=== PATIENT | male | born 1965 | race Caucasian/White ===

== ENCOUNTER 2019-10-24 08:58 | Outpatient (CLI) | payer OTHER, SELFPAY ==
--- NOTE | 2019-10-24 10:45 | NEURO_ITS ---
Patient Number: [id number] Impression: # Complains of left elbow discomfort and hand numbness. # No Carpal Tunnel Syndrome or ulnar neuropathy. # Cross innervation ulnar to median below the elbow noted. # Normal needle/EMG exam. Nerve Conduction Studies Anti Sensory Summary Table Stim Site NR Peak (ms) P-T Amp (?V) Site1 Site2 Delta-P (ms) Dist (cm) Dimitry (m/s) Left Median Anti Sensory (2-3nd Digit) Wrist 3.0 45.5 Wrist 2-3nd Digit 3.0 14.0 47 Wrist 3.0 66.0 Wrist 2-3nd Digit 3.0 14.0 47 Left Radial Anti Sensory (Base 1st Digit) Wrist 1.8 22.3 Wrist Base 1st Digit 1.8 0.0 Left Ulnar Anti Sensory (5th Digit) Wrist 2.4 41.7 Wrist 5th Digit 2.4 14.0 58 Motor Summary Table Stim Site NR Onset (ms) O-P Amp (mV) Site1 Site2 Delta-0 (ms) Dist (cm) Dimitry (m/s) Left Median Motor (Abd Poll Brev) Wrist 3.4 0.8 Elbow Wrist 4.9 28.0 57 Elbow 8.3 1.8 ELB/ADM Wrist 0.2 0.0 Left Ulnar Motor (Abd Dig Minimi) Wrist 2.7 5.3 A Elbow Wrist 5.2 29.0 56 A Elbow 7.9 3.9 F Wave Studies NR F-Lat (ms) L-R F-Lat (ms) Left Median (Mrkrs) (Abd Poll Brev) 28.54 Left Ulnar (Mrkrs) (Abd Dig Min) 29.29 EMG Side Muscle Nerve Root Ins Act Fibs Amp Dur Recrt Comment Left 1stDorInt Ulnar C8-T1 Nml Nml Nml Nml Nml Left Ext Indicis Radial (Post Int) C7-8 Nml Nml Nml Nml Nml Left Ext Digitorum Radial (Post Int) C7-8 Nml Nml Nml Nml Nml Left BrachioRad Radial C5-6 Nml Nml Nml Nml Nml Left PronatorTeres Median C6-7 Nml Nml Nml Nml Nml Left Abd Poll Brev Median C8-T1 Nml Nml Nml Nml Nml Left ABD Dig Min Ulnar C8-T1 Nml Nml Nml Nml Nml MTDD
== END 2019-10-24 08:59 | disposition home or self-care (01) ==
PROVIDERS: PCP Internal Medicine; Visit Provider Nurse Practitioner
DX: M79.642 Pain in left hand (principal)
CPT/HCPCS: 95886; 95909

== ENCOUNTER 2019-12-17 02:27 | Outpatient (CLI) | payer OTHER, SELFPAY ==
[2019-12-17 17:02] LABS: SARS-CoV-2 RNA PCR Negative
== END 2019-12-17 02:28 | disposition home or self-care (01) ==
LOC: ANHCOVIDDT 02:27
PROVIDERS: PCP Internal Medicine; Visit Provider Plastic Surgery
DX: Z01.812 Encounter for preprocedural laboratory examination (principal); Z11.59 Encounter for screening for other viral diseases
CPT/HCPCS: 87635; C9803; U0003

== ENCOUNTER 2019-12-19 01:39 | Day surgery (SDC) | payer OTHER, SELFPAY ==
[2019-12-10 10:12] VITALS: BMI 35.9
[2019-12-19 08:37] VITALS: BP 141/77; PULSE 70; RESP 16; TEMP 36.4; O2SAT 98
[2019-12-19] MEDS: LACTATED RINGERS 1,000 ML 30 ML IV CONT (08:50)
--- NOTE | 2019-12-19 09:26 | WPDANESEPPF ---
Anes - Initial Pre Proc Eval Procedure: Operation Date: 12/19/19 10:30 Proposed Procedures p Left Ulnar Neuroplasty At The Elbow - Juan Diego Gonzalez MD Date/Time: 12/19/19 09:26 Surgeon: Juan Diego Gonzalez MD Pre Op Diagnosis: Left Cubital Tunnel Syndrome Patient Data Age: 54 Gender: M Height: 5 ft 10 in Weight: 117 kg Last Vital Signs Temp 36.4 C 12/19/19 08:37 Pulse 70 12/19/19 08:37 Resp 16 12/19/19 08:37 BP 141/77 H 12/19/19 08:37 Pulse Ox 98 12/19/19 08:37 Allergies Allergy/AdvReac Type Severity Reaction Status Date / Time No Known Allergies Allergy Unknown Verified 12/19/19 08:47 Home Medications Medication Instructions Recorded Confirmed Type fexofenadine-pseudoephedrine ER 1 tablet PO DAILY PRN 02/22/19 12/19/19 History 180 mg-240 mg tablet,ext.release 24 hr fluticasone propionate 50 2 spray NASAL DAILY PRN 08/06/19 12/19/19 History mcg/actuation nasal spray,suspension fluticasone 250 mcg-salmeterol 50 1 inhalation INHALATION BID #60 11/15/19 12/19/19 Rx mcg/dose blistr powdr for each inhalation Patient hx anesthesia problems: none Family hx anesthesia problems: none PMFSH Past Medical History Medical History Allergies Asthma Bilateral leg pain Common peroneal nerve dysfunction Elevated glucose Low testosterone Lower extremity pain Sleep apnea Surgical History Surgical History H/O hernia repair 2009 History of carpal tunnel release BL 2015 Family History Family History Sibling Lupus Son Diabetes mellitus Social History Social History Smoking packs per day: 1 Smoking cigarettes per day: 20.0 Years smoked: 5 Smoking pack-years: 5.00 Smoking status: Former smoker Tobacco type: cigarettes Smoking end date: 04/10/90 Additional smoking assessment comments: QUIT 1992 Alcohol intake: current Drinks per week: 1 Substance use: never Spiritual care concerns: No Anes - Eval Final PreProcedure Day of Procedure 12/19/19 09:26 Patient weight: obese Heart: regular rate and rhythm Lungs: clear to auscultation Airway: Mallampati scale class II Neurological: alert and oriented Last oral intake: >/= 8 hours ASA classification: III Emergent: no Anesthetic plan: proceed Anesthesia type and monitoring: general LMA and standard monitoring Informed Consent: The patient's anesthetic plan and its attendant risks and benefits were discussed with the patient/family/POA. Questions were solicited and answers provided to the satisfaction of the patient/family/POA.
--- NOTE | 2019-12-19 10:00 | SUR.PREOP ---
0957-PT AWARE SURGERY DELAYED UNDETERMINED TIME R/T PRIOR CASE.
--- NOTE | 2019-12-19 10:27 | WPDHPUPDATE1 ---
History and Physical Update Update Date/Time: 12/19/19 10:27 History and Physical has been reviewed, including an updated exam of the patient. There are NO changes in the patient's condition. Risks, benefits, and alternatives have been discussed and questions answered. Patient agrees to proceed with procedure.
[2019-12-19] MEDS: LIDO 1%/EPINEPHRINE 1:100,000 20 ML VIAL INFILTRATE (11:00)
--- NOTE | 2019-12-19 11:41 | PM.OP ---
Procedure Note - Brief Procedure Note - Brief Date of procedure: 12/19/19 Pre-op diagnosis: Left Cubital Tunnel Syndrome Post-op diagnosis: same Procedure performed: L Ulnar neuroplasty at the elbow. Anesthesia: MAC Surgeon: Juan Diego Gonzalez MD Estimated blood loss (mL): 5 Tourniquet time (min): 20 Drains: No Packing: No Pathology: none sent Complications: No immediate complications Condition: stable Disposition: same day
--- NOTE | 2019-12-19 11:44 | P.OP_ITS ---
Procedure Note - Detailed Date of procedure: 12/19/19 Pre-op diagnosis: Left Cubital Tunnel Syndrome Post-op diagnosis: same Procedure performed: Left ulnar neuroplasty at the elbow Description of procedure: The appropriate elbow was marked on the patient as he was in the holding area. He was taken to the operating room and placed supine on the operating table. A time-out was held and confirmed. He was given sedation anesthetic. The extremity was prepped and draped in usual fashion. The elbow was flexed and the arm externally rotated. The elbow was supported on folded towels. The incisional marking was made again and the site locally infiltrated with 1% lidocaine with epinephrine. The tourniquet was inflated to 250 mmHg. The incision was made with a 15. Blade. Dissection was carried through the thick subcutaneous tissue with scissor dissection. This gentleman has a great deal of muscle mass both in the flexor forearm and in the triceps. The nerve lay in the deep groove. It was dissected proximally, 1st releasing overlying fascial and dividing the intermuscular septum. From proximal to distal, the Banegas ligament was released with careful scissor dissection. It appeared that the nerve lay under compression in that region. The muscle fascia of the flexor carpi ulnaris was incised and the very robust muscle was divided directly over the nerve for 3 cm. At that point there was no further pressure on the nerve. The nerve did not sublux. Bleeding points were carefully sought and coagulated. The deep wound margins were approximated with intradermal 3-0 Monocryl suture at several sites. The skin was closed with a running intradermal 3-0 Monocryl suture and a bulky bandage was applied. The tourniquet was released. The patient was discharged from the operating room stable condition. He is dischar ge instructions in wound care and follow-up and has a prescription for hydrocodone 5/325 number a 14. Surgeon: Juan Diego Gonzalez MD
== END 2019-12-19 12:45 | disposition home or self-care (01) ==
PROVIDERS: PCP Internal Medicine; Visit Provider Plastic Surgery
PROC: (CPT 64718; principal; 2019-12-19 10:30)
DX: G56.22 Lesion of ulnar nerve, left upper limb (principal); J45.909 Unspecified asthma, uncomplicated; Z87.891 Personal history of nicotine dependence; E66.9 Obesity, unspecified; Z68.37 Body mass index [BMI] 37.0-37.9, adult
CPT/HCPCS: 64718; A9270; J2250; J2704; J3010; J7120

== ENCOUNTER 2019-12-29 11:40 | Emergency (ER) | payer OTHER, SELFPAY ==
[2019-12-29 11:46] VITALS: BP 169/78; PULSE 78; RESP 18; TEMP 36.4; O2SAT 98
--- NOTE | 2019-12-29 11:56 | ED.BACK ---
HPI - Back Pain/Injury General Chief Complaint: Back Pain/Injury Stated Complaint: back pain Time Seen by Provider: 12/29/19 11:46 History of Present Illness HPI Narrative: 54-year-old male presents emergency department for nonradiating low back pain that started yesterday around noon when he was moving around cat litter and the cat litter box. Patient states he was standing on the stairs, and turned a certain way, immediately feeling the pain. Patient denies any other injuries, traumas, or falls. No numbness or tingling noted. No bowel or bladder incontinence. Patient denies IV drug use. No chest pain or shortness of breath. No abdominal pain. Related Data Home Medications Medication Instructions Recorded Confirmed fexofenadine-pseudoephedrine ER 1 tablet PO DAILY PRN 02/22/19 12/19/19 180 mg-240 mg tablet,ext.release 24 hr hydrocodone-acetaminophen 12/29/19 Allergies Allergy/AdvReac Type Severity Reaction Status Date / Time No Known Allergies Allergy Unknown Verified 12/29/19 11:50 Review of Systems Review of Systems: Narrative: CONSTITUTIONAL: Denies fever, chills, or sweats. EYES: Denies visual changes, redness, or discharge. ENT: Denies rhinorrhea, congestion, sore throat, or otalgia. CARDIOVASCULAR: Denies chest pain, palpitations, or edema. RESPIRATORY: Denies cough or dyspnea. GASTROINTESTINAL: Denies abdominal pain, nausea, vomiting, or diarrhea. GENITOURINARY: Denies dysuria or hematuria. SKIN: Denies rash or itching. MUSCULOSKELETAL: Reports low back pain, denies joint pain. NEUROLOGIC: Denies headache, numbness, tingling, dizziness, or weakness. PSYCHIATRIC: Denies anxiety or depression. [facility] Past Medical History Medical History Allergies Asthma Bilateral leg pain Common peroneal nerve dysfunction Elevated glucose Low testosterone Lower extremity pain Sleep apnea Surgical History Surgical History H/O hernia repair 2009 History of carpal tunnel release 2015 Family History Family History Sibling Lupus Son Diabetes mellitus Social History Social History Smoking packs per day: 1 Smoking cigarettes per day: 20.0 Years smoked: 5 Smoking pack-years: 5.00 Smoking status: Former smoker Tobacco type: cigarettes Smoking end date: 04/10/90 Additional smoking assessment comments: QUIT 1992 Alcohol intake: current Drinks per week: 1 Substance use: never Gender identity (if verbalized by the patient): Male Spiritual care concerns: No Exam Narrative: Exam Narrative: GENERAL: Well-appearing, well-nourished, and in no acute distress. HEAD: Normocephalic, atraumatic. EYES: PERRLA and EOMI. ENT: Nares clear, no rhinorrhea or epistaxis. Mucous membranes moist. NECK: Supple. CHEST: Clear to auscultation. No respiratory distress. HEART: Regular rate and rhythm. No murmur heard. Normal peripheral pulses. ABDOMEN: Soft, nontender, nondistended, normal active bowel sounds. EXTREMITIES: Pain with straight leg raise at 30 degrees bilaterally. Low, mid back TTP SKIN: Warm, dry, no rash. NEURO: No focal deficits. Alert and oriented x3. PSYCH: Normal mood and affect. Course Reevaluation(s) Reevaluation #1: 1325 -evaluate patient, pain improved. Low suspicion for cauda equina, epidural abscess, or other spinal cord injury. Based on patient's history, pain likely musculoskeletal. Counseled patient to follow-up with his medical provider within 1 week. Return to emergency department if his symptoms persist, worsen, or other concerns. Can alternate Motrin and Tylenol as needed for pain. Vital Signs Vital signs: Vital Signs Temperature 36.4 C 12/29/19 11:46 Pulse Rate 78 12/29/19 11:46 Respiratory Rate 18 12/29/19 11:46 Blood Pressure
[2019-12-29] MEDS: KETOROLAC 30 MG/ML VIAL (*BKC) IM (12:18)
[2019-12-29] MEDS: diazePAM INJ (*CRX) 10 MG/2 ML SYRINGE 2 MG IM (12:19)
[2019-12-29 13:51] VITALS: BP 147/80; PULSE 72; RESP 18; O2SAT 100
== END 2019-12-29 13:52 | disposition home or self-care (01) ==
PROVIDERS: Emergency Provider Emergency Medicine; PCP Internal Medicine
DX: M54.5 Low back pain (principal); J45.909 Unspecified asthma, uncomplicated; G47.30 Sleep apnea, unspecified; Z87.891 Personal history of nicotine dependence
CPT/HCPCS: 96372; 99284; J1885; J3360

== ENCOUNTER 2022-06-07 10:47 | Outpatient (CLI) | payer OTHER, SELFPAY | END 2022-06-07 10:48 | disposition home or self-care (01) | LOC: ANHAUDIO 10:47 | PROVIDERS: PCP Internal Medicine; Visit Provider Clinical Nurse Specialist | DX: H91.90 Unspecified hearing loss, unspecified ear (principal) | CPT/HCPCS: 92557; 92567 ==

== ENCOUNTER 2023-10-30 14:43 | Outpatient (CLI) | payer OTHER, SELFPAY ==
--- NOTE | ~2023-10-30 | XR_ITS ---
EXAM: XR_[id number]_CR DATE: 10/30/2023 14:54 HISTORY: M54.12 - Radiculopathy, cervical region . COMPARISON: None available. FINDINGS: Craniocervical association and atlantoaxial joint are aligned. Mild degenerative change at the atlantodental interval. No prevertebral soft tissue swelling. Cervical straightening. 1 mm retro listhesis at C3-4. 2 mm retrolisthesis at C5-6. Vertebral body heights are maintained. Mild disc spac e narrowing at C3-4 and C5-6 with mild marginal osteophytosis. Mild uncovertebral joint hypertrophy o n the right at C5-6. Normal facets and posterior elements. IMPRESSION: Multilevel grade 1 listheses, likely on a degenerative basis. Mild multilevel degenerativ e disc disease. Reviewed, dictated and finalized at location [facility]. IMPRESSION: Multilevel grade 1 listheses, likely on a degenerative basis. Mild multilevel degenerative disc disease.
== END 2023-10-30 14:44 ==
LOC: MICIMG 14:45
PROVIDERS: PCP Internal Medicine; Visit Provider Clinical Nurse Specialist
DX: M43.12 Spondylolisthesis, cervical region (principal); M50.322 Other cervical disc degeneration at C5-C6 level
CPT/HCPCS: 72040

== ENCOUNTER 2023-12-13 11:23 | Outpatient (CLI) | payer OTHER, SELFPAY ==
--- NOTE | ~2023-12-13 | XR_ITS ---
Right Shoulder Technique: AP and scapular Y views were obtained. Clinical History: Pain Findings: No fracture or dislocation is seen. Osseous alignment is anatomic. The glenohumeral and acr omioclavicular joint spaces are preserved. Soft tissues are unremarkable. Impression: Unremarkable right shoulder radiographs. Reviewed, dictated and finalized at [facility]. Impression: Unremarkable right shoulder radiographs.
== END 2023-12-13 11:24 | disposition home or self-care (01) ==
PROVIDERS: PCP Clinical Nurse Specialist; Visit Provider Clinical Nurse Specialist
DX: M25.511 Pain in right shoulder (principal)
CPT/HCPCS: 73030

== ENCOUNTER 2024-01-08 07:18 | Outpatient (CLI) | payer OTHER, SELFPAY ==
--- NOTE | ~2024-01-08 | MR_ITS ---
MRI of the cervical spine Clinical History: Radiculopathy Technique: Axial T2-weighted and gradient images, and sagittal T1-weighted, T2-weighted, and STIR joseph ges were acquired. Findings: There is no fracture or subluxation of the cervical spine. Vertebral bodies maintain normal height and alignment. No suspicious bone marrow signal abnormality seen. At C2-C3, there is no disc bulge or herniation. No spinal canal stenosis, cord compression, or neural foraminal narrowing. At C3-C4, there is minimal disc osteophyte complex and minimal facet arthropathy. There is left neura l foraminal narrowing. Right neural foramen preserved. No central canal stenosis or cord compression. At C4-C5, there is no significant disc bulge or herniation. No spinal canal stenosis or cord compress ion. Probable minimal bilateral neural foraminal narrowing. At C5-C6, there is moderate to advanced degenerative disc narrowing with minimal disc osteophyte comp mejia. No spinal canal stenosis or cord compression. There is bilateral neural foraminal narrowing. At C6-C7, there is no disc bulge or herniation. No spinal canal stenosis, cord compression, or neural foraminal narrowing. No abnormal signal seen in the spinal cord. Paravertebral soft tissues are unremarkable. Impression: Tmbw-gu-ohowihvm degenerative spondylosis, as above, with multilevel neural foraminal narrowing. Reviewed, dictated and finalized at [facility]. Impression: Qlkh-[id number] degenerative spondylosis, as above, with multilevel neural for aminal narrowing.
--- NOTE | ~2024-01-08 | MR_ITS ---
EXAMINATION: MR shoulder RT wo con DATE: 01/08/2024 08:59 INDICATION: Right shoulder pain. TECHNIQUE: Magnetic resonance imaging (MRI) of the right shoulder was performed without intravenous c ontrast. Sequences included axial PD-weighted FS FSE, coronal oblique PD-weighted FS FSE and T2-weigh rand FS FSE, and sagittal oblique T2-weighted FS FSE and T1-weighted FSE. COMPARISON: Right shoulder radiographs 12/13/2023 FINDINGS: Coracoacromial arch: The acromion undersurface is curved in morphology (type II). There is severe acromioclavicular joint osteoarthritis including full-thickness cartilage loss and osteophytes. There is mild subacromial/sub deltoid bursitis. Rotator cuff: There is an interstitial tear of the conjoined portion of supraspinous and infraspinatus tendons gina uring 7 mm anterior to posterior by 5 mm proximal to distal by 40% tendon thickness. Teres minor tend on is normal. There is mild subscapularis tendinopathy. There is volume loss and moderate fatty atrop hy of teres minor muscle belly. Biceps tendon and glenoid labrum: Biceps tendon is in bicipital groove. There is mild intra-articular biceps tendinopathy. There is a t ear of glenoid labrum from 11:00 to 12:00 (SLAP tear). Fluid: There is a small glenohumeral joint effusion. Bones/cartilage: Glenoid cartilage is normal. Humeral head cartilage is normal. IMPRESSION: 1. Partial-thickness rotator cuff tear. 2. SLAP tear. 3. Severe acromioclavicular joint osteoarthritis. 4. Mild subacromial/subdeltoid bursitis. 5. Small glenohumeral joint effusion. 6. Volume loss and moderate fatty atrophy of teres minor muscle belly, which may be seen with quadril ateral space syndrome. Reviewed, dictated and finalized at location [facility]. IMPRESSION: 1. Partial-thickness rotator cuff tear. 2. SLAP tear. 3. Severe acromioclavicular joint osteoarthritis. 4. Mild subacromial/subdeltoid bursitis. 5. Small glenohumeral joint effusion. 6. Volume loss and moderate fatty atrophy of teres minor muscle belly, which ma y be seen with quadrilateral space syndrome.
== END 2024-01-08 07:19 | disposition home or self-care (01) ==
PROVIDERS: PCP Clinical Nurse Specialist; Visit Provider Clinical Nurse Specialist
DX: M54.12 Radiculopathy, cervical region (principal)
CPT/HCPCS: 72141; 73221

== ENCOUNTER 2025-02-03 01:11 | Day surgery (SDC) | payer OTHER, SELFPAY ==
--- OUTSIDE RECORDS SUMMARY | 2024-07-17 03:22 | XMS_ITS | Continuity of Care Document ---
Author Organization [facility] Address [address] [place] [address] Phone Care Team Providers Care Agate Setter Name Role Phone Say PT,MPT,ATC, Yunior Unavailable Unavai lable Procedures Procedure Date Therapeutic Activities Neuromuscular Re-Ed Therapeutic Exercise Therapeutic Activities Neuromuscular Re-Ed Therapeutic Exercise Therapeutic Activities Neuromuscular Re-Ed Therapeutic Exercise Therapeutic Activities Neuromuscular Re-Ed Therapeutic Exercise Therapeutic Activities Neuromuscular Re-Ed Therapeutic Exercise Therapeutic Activities Neuromuscular Re-Ed Therapeutic Exercise Therapeutic Activities Neuromuscular Re-Ed Therapeutic Exercise Therapeutic Activities Neuromuscular Re-Ed Therapeutic Exercise Manual Therapy Doc neg elder mal no plan PT Evaluation Moderate Complexity Therapeutic Activities Neuromuscular Re-Ed Advance Directives Directive Yes / No Effective Date File Name No Information Encounters Encounter Description Practice Location Reason(s) For Visit Diagnoses Date Provider Providers Copied on Encounter [facility], [address], [place], [place], [id number], [place] tel:[phone] [place] No Information 5 Deal Yunior. , [place], [place]. [facility], [address], [place], [place], [id number], [place] tel:[phone] [place] No Information 4 [place] Yanick. . Referring Provider: Jake Zeng, [address] [place] [address] [address], [place], [address]. tel:[phone] [facility] [address], [place], [place], [id number], [place] tel:[phone] [place] No Information 4 [place] Yanick. . Referring Provider: Jake Zeng, [address] [place] [address] [address], [place], [address]. tel:[phone] [facility] [address], [place], [place], [id number], [place] tel:[phone] [place] No Information 4 Deal Yunior. , [place], [place]. Referring Provider: Jake Zeng, [address] [place] [address] [address], [place], [address]. tel:[phone] [facility] [address], [place], [place], [id number], [place] tel:[phone] [place] No Information 4 [place] Yanick. . Referring Provider: Jake Zeng, [address] [place] [address] [address], [place], [address]. tel:[phone] [facility] [address], [place], [place], [id number], [place] tel:[phone] [place] No Information 4 [place] Yanick. . Referring Provider: Jake Zeng, [address] [place] [address] [address], [place], [address]. tel:[phone] [facility], [place], [place], [id number], tel:[phone] [place] No Information 4 Ohdignaoraria Yanick. . Referring Provider: Jake Zeng, [address] [place] [address] [address], [place], [address]. tel:[phone] [facility] [address] [facility] [address], [place], [place], [id number], tel:[phone] [place] No Information 4 Ohdignaoraria Beardener. . Referring Provider: Jake Zeng, [address] [place] [address] [address], [place], [address]. tel:[phone] [place] [address] [address], [place], [place], [id number], tel:[phone] [place] No Information 4 Walter Prieto. [address] [facility], [address], [place], [place], [facility], . tel:[phone] Referring Provider: Jake Zeng, [address] [place] [address] [address], [place], [address]. tel:[phone], [id number], tel:[phone] [place] No Information 4 [place], [place], . Referring Provider: Jake Zeng, [address] [place] [address] [address], [place], [address]. tel:[phone] Family History Family Member Type Diagnosis Age At Onset No Information Payers Payer name Insurance type Covered constitution party ID Authoriza tion(s) No Information Social History Type Description Quantity Date Captured Comments Sex Male Smoking Status No Information Chief Complaint And Reason For Visit No Information Reason For Referral Reason For Referral No Information History Of Present Illness Encounter Date Complaint History Of Prese nt Illness No Information Functional Status Date Functional Assessmen t No Information Instructions Date Instruction Additional Infor mation No Information Assessments Type Assessment Date No Information Patient Care Teams Name Effective Dates (start - stop) Status Members No Information
[2025-01-22 16:13] VITALS: BMI 32.3
--- OUTSIDE RECORDS SUMMARY | 2025-02-03 01:13 | XMS_ITS | Clinical Summary ---
Author Organization [facility] Address [address] [place] [address] Care Team Providers Care Demographic Analyst Name Role Phone Jake Zeng DO Primary Care Provider Allergies No known active allergies Medications Advair Diskus 250-50 mcg/dose diskus inhaler 04/16/2019 Acti ve Active Problems No known active problems Surgical History Surgery Date Site/Laterality Comments CARPAL TUNNEL RELEASE Medical History Medical History Date Comments Arthritis Sleep apnea Allergic rhinitis Family History Medical History Relation Name Comments No Known Problems Mother Diabetes Son Relation Name Status Comments Mother Son Social History Tobacco Use Types Packs/Day Years Used Date Smoking Tobacco: Former Cigarettes 1 5 0 04/10/1987 - 04/10/1992 Smokeless Tobacco: Never Alcohol Use Standard Drinks/Week Comments Yes 0 (1 standard drink = 0.6 oz pur e alcohol) Social Personal Safety Answer Date Recorded Getting School Help Needed Not on file 06/24 Sex and Gender Information Value Date Recorded Sex Assigned at Not on file 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
[2025-02-03 09:05] VITALS: BP 120/76; PULSE 70; RESP 16; TEMP 36.6; O2SAT 100; BMI 32.3
[2025-02-03] MEDS: LACTATED RINGERS 1,000 ML 150 ML IV CONT (09:20)
--- NOTE | 2025-02-03 09:33 | P.PNAN_ITS ---
Anes - Initial Pre Proc Eval Procedure: Operation Date: 02/03/25 10:30 Proposed Procedures p Screening Colonoscopy - Estuardo Sky MD Date/Time: 02/03/25 09:33 Surgeon: Estuardo Sky MD Pre Op Diagnosis: Screening Patient Data Age: 59 Gender: M Height: 1.78 m Weight: 102.1 kg Last Vital Signs Temp 36.6 C 02/03/25 09:05 Pulse 70 02/03/25 09:05 Resp 16 02/03/25 09:05 BP 120/76 02/03/25 09:05 Pulse Ox 100 02/03/25 09:05 O2 Del Method Room Air 02/03/25 09:05 Allergies Allergy/AdvReac Type Severity Reaction Status Date / Time No Known Allergies Allergy Unknown Verified 02/03/25 09:11 Home Medications ?Medication ?Instructions ?Recorded ?Confirmed ?Type ibuprofen 600 mg tablet 600 mg PO TID PRN pain, mode rate 12/29/19 01/22/25 Rx #30 tabs fluticasone 100 mcg-salmeterol 50 1 inh inhalation Q12 H #180 ea 04/26/24 02/03/25 Rx mcg/dose blistr powdr for inhalation (Advair Diskus) albuterol sulfate 90 mcg/actuation 1 puff inhalation Q 4H PRN 05/03/24 01/22/25 Rx aerosol inhaler shortness of breath or wheez ing #90 mcg CPAP #1 ea 07/31/24 01/22/25 Rx semaglutide (weight loss) 0.25 0.25 mg subcut .bi week ly 01/22/25 02/03/25 History mg/0.5 mL subcutaneous pen injector Patient hx anesthesia problems: none Family hx anesthesia problems: none Results Review: All pre-operative results and documents have been reviewed as part of the pre- operative evaluation. FORMERLY [facility], [facility] Past Medical History Medical History Common peroneal nerve dysfunction Lower extremity pain Bilateral leg pain Asthma Sleep apnea Elevated glucose Low testosterone Allergies Surgical History Surgical History History of elbow surgery History of carpal tunnel release 2015 H/O hernia repair 2009 Family History Family History Sibling Lupus Son Diabetes mellitus Social History Social History Social History: Caffeine-coffee Smoking packs per day: 1 Smoking cigarettes per day: 20.0 Years smoked: 4 Smoking pack-years: 4.00 Smoking status: Former smoker Tobacco type: cigarettes Smoking end date: 04/10/90 Additional smoking assessment comments: QUIT 1992 Alcohol intake: current Drinks per week: 1 Alcohol use details: occasionally Substance use: never Substance use type: does not use Do You Feel Safe in your Home?: Yes Lack of Transportation: No Lack of Food: Never True Current Housing: I Have Housing Concerned About Future Housing: No Difficulty Paying Gas/Electric Bills: No Difficulty Paying for Meds: No Currently Unemployed: No Education: Master's Degree or Higher Difficulty w/ Childcare or Family Care: No Living arrangements: with family Gender identity (if verbalized by the patient): Male Spiritual care concerns: No Anes - Eval Final PreProcedure Day of Procedure 02/03/25 09:33 Patient weight: obese Heart: regular rate and rhythm Lungs: clear to auscultation Airway: Mallampati scale class II Neurological: alert and oriented Last oral intake: >/= 8 hours ASA classification: III Emergent: no Anesthetic plan: proceed Anesthesia type and monitoring: general GIVS and standard monitoring Results Review: All pre-operative results and documents have been reviewed as part of the pre- operative evaluation. Informed Consent: The patient's anesthetic plan and its attendant risks and benefits were discussed with the patient/family/POA. Questions were solicited and answers provided to the satisfaction of the patient/family/POA.
--- NOTE | 2025-02-03 09:59 | P.HP_ITS ---
History of Present Illness History of Present Illness Consent: Risks, benefits, and alternatives have been discussed and questions answered. Patient agrees to proceed with procedure. Chief complaint: Screening Narrative: Andreas Machuca is a 59 year old male here for screening colonoscopy, last one 11 years ago Review of Systems Review of Systems: All systems reviewed & are unremarkable except as noted in HPI and below PMFSH Past Medical History Medical History Common peroneal nerve dysfunction Lower extremity pain Bilateral leg pain Asthma Sleep apnea Elevated glucose Low testosterone Allergies Surgical History Surgical History History of elbow surgery History of carpal tunnel release 2015 H/O hernia repair 2009 Family History Family History Sibling Lupus Son Diabetes mellitus Social History Social History Social History: Caffeine-coffee Smoking packs per day: 1 Smoking cigarettes per day: 20.0 Years smoked: 4 Smoking pack-years: 4.00 Smoking status: Former smoker Tobacco type: cigarettes Smoking end date: 04/10/90 Additional smoking assessment comments: QUIT 1992 Alcohol intake: current Drinks per week: 1 Alcohol use details: occasionally Substance use: never Substance use type: does not use Do You Feel Safe in your Home?: Yes Lack of Transportation: No Lack of Food: Never True Current Housing: I Have Housing Concerned About Future Housing: No Difficulty Paying Gas/Electric Bills: No Difficulty Paying for Meds: No Currently Unemployed: No Education: Master's Degree or Higher Difficulty w/ Childcare or Family Care: No Living arrangements: with family Gender identity (if verbalized by the patient): Male Spiritual care concerns: No Meds Home Medications and Allergies Home Medications ?Medication ?Instructions ?Recorded ?Confirmed ?Type ibuprofen 600 mg tablet 600 mg PO TID PRN pain, mode rate 12/29/19 01/22/25 Rx #30 tabs fluticasone 100 mcg-salmeterol 50 1 inh inhalation Q12 H #180 ea 04/26/24 02/03/25 Rx mcg/dose blistr powdr for inhalation (Advair Diskus) albuterol sulfate 90 mcg/actuation 1 puff inhalation Q 4H PRN 05/03/24 01/22/25 Rx aerosol inhaler shortness of breath or wheez ing #90 mcg CPAP #1 ea 07/31/24 01/22/25 Rx semaglutide (weight loss) 0.25 0.25 mg subcut .bi week ly 01/22/25 02/03/25 History mg/0.5 mL subcutaneous pen injector Allergies Allergy/AdvReac Type Severity Reaction Status Date / Time No Known Allergies Allergy Unknown Verified 02/03/25 09:11 Vital Signs Vital Signs - 24 hr 02/03/25 09:05 Temperature 97.8 F Pulse Rate 70 Respiratory Rate 16 Blood Pressure 120/76 Pulse Oximetry 100 Oxygen Delivery Room Air Exam Const: General: comfortable and no acute distress HENMT: Face/Nose/Sinus: Normal nares present Eyes: General: appearance normal, both eyes and all related structures Neck: Neck: no JVD Resp: Auscultation: clear to auscultation bilaterally Cardio: Rate: regular rate Rhythm: regular rhythm GI: Inspection: non-distended GI Palp: Yes Soft to palpation Skin: General skin exam: normal color Extrem: General: normal to inspection Psych: Mental Status: mental status grossly normal Assessment and Plan Assessment and plan (1) Screening for colon cancer: Code(s): Z12.11 - Encounter for screening for malignant neoplasm of colon Status: Acute Assessment and Plan: colonoscopy
--- NOTE | 2025-02-03 10:16 | S_PTH ---
PATIENT: Andreas Machuca LOC: [facility]#:[id number] AGE/SX: 59/M ROOM: RE02/03/[address]: Estuardo Sky MD : 1965 BED: DIS: 02/03/2025 SPEC #: [id number] RECD: 02/03/25 11:11 STATUS: MICHAEL REQ #: [id number] ROBERT: 02/03/25 10:[address]: Estuardo Sky DEPT: [facility] Surgical RECD BY: Verito Krause ENTERED: 02/03/25 11:11 SP TYPE: Surgical OTHR DR: Jake Zeng DO Tissues: A - Colon Polypectomy B - Colon Polypectomy Procedures: Hematoxylin and Eosin Stain Gross and Microscopic Level 4
[2025-02-03 10:21] VITALS: BP 110/70; PULSE 74; RESP 20; O2SAT 96
[2025-02-03 10:31] VITALS: BP 113/72; PULSE 73; RESP 19; O2SAT 99
[2025-02-03 10:41] VITALS: BP 118/73; PULSE 67; RESP 14; O2SAT 100
== END 2025-02-03 10:47 | disposition home or self-care (01) ==
PROVIDERS: PCP Internal Medicine; Referring Provider Clinical Nurse Specialist; Visit Provider Internal Medicine Gastroenterology
PROC: 0DJD8ZZ Inspection of Lower Intestinal Tract, Via Natural or Artificial Opening Endoscopic (ICD-10-PCS; CPT 45378; principal; 2025-02-03 10:30)
DX: Z12.11 Encounter for screening for malignant neoplasm of colon (principal); D12.3 Benign neoplasm of transverse colon; D12.2 Benign neoplasm of ascending colon; K64.8 Other hemorrhoids; J45.909 Unspecified asthma, uncomplicated; G47.30 Sleep apnea, unspecified; E29.1 Testicular hypofunction; E66.9 Obesity, unspecified; Z68.32 Body mass index [BMI] 32.0-32.9, adult; Z99.89 Dependence on other enabling machines and devices; Z79.1 Long term (current) use of non-steroidal anti-inflammatories (NSAID); Z79.51 Long term (current) use of inhaled steroids; Z79.85 Long-term (current) use of injectable non-insulin antidiabetic drugs; Z98.890 Other specified postprocedural states; Z87.891 Personal history of nicotine dependence
CPT/HCPCS: 45385; 88305; J2003; J2704; J7120

== ENCOUNTER 2025-03-19 10:37 | Outpatient (CLI) | payer OTHER, SELFPAY ==
--- NOTE | ~2025-03-19 | XR_ITS ---
EXAMINATION: XR foot RT 2V DATE: 03/19/2025 10:48 INDICATION: First digit pain TECHNIQUE: Right foot x-rays were obtained. COMPARISON: None. IMPRESSION: 1. No displaced fracture dislocation or aggressive bone lesion. No discrete soft tissue abnormality seen. 2. No gross acute or aggressive bony or soft tissue process seen. Reviewed, dictated and finalized at location A. [facility] [employer] REPRESENTATIVE IMPRESSION: 1. No displaced fracture dislocation or aggressive bone lesion. No discrete sof t tissue abnormality seen. 2. No gross acute or aggressive bony or soft tissue process seen.
== END 2025-03-19 10:38 | disposition home or self-care (01) ==
LOC: MICIMG 10:38
PROVIDERS: PCP Internal Medicine
DX: M79.671 Pain in right foot (principal)
CPT/HCPCS: 73620